=== PATIENT | male | born 1985 | race Caucasian/White ===

== ENCOUNTER 2020-03-02 20:46 | Emergency (ER) | payer OTHER ==
[~2020-03-02] VITALS: Ht 177.8 cm; Wt 63.5 kg
[2020-03-02 22:29] VITALS: BP 115/82
[2020-03-02 23:30] VITALS: BP 118/88
--- NOTE | 2020-03-02 23:39 | DIREP ---
PROCEDURE:CHEST 1 VIEW COMPARISON:None. INDICATIONS:Chest congestion FINDINGS: LUNGS/PLEURA:Prominence of the suprahilar and upper lobe interstitial markings. No consolidation or pleural effusion. VASCULATURE:Normal. Unremarkable pulmonary vasculature. CARDIAC:Normal. No cardiac silhouette abnormality or cardiomegaly. MEDIASTINUM:Normal. No visible mass or adenopathy. BONES:Normal. No fracture or visible bony lesion. OTHER:Negative. CONCLUSION:Prominence of the suprahilar and upper lobe interstitial markings. No consolidation or pleural effusion. Dictated by: Gustavo Chaves MD on 03/02/2020 at 11:36 PM
[2020-03-02] MEDS ORDERED: AMOXIL PO STA (23:54)
--- NOTE | 2020-03-02 23:58 | ER.PDOC ---
General Chief Complaint: Dyspnea/Respdistress Stated Complaint: CHEST CONGESTION Time seen by MD: 23:54 Source: patient Exam Limitations: no limitations History of Present Illness Initial Comments Cough, congestion and sore throat for 2 days. No fever or chills. Timing/Duration: gradual Severity: moderate Associated Symptoms: runny nose, sore throat, cough Allergies: Coded Allergies: No Known Allergies (Unverified , 03/02/20) Constitutional: no symptoms reported EENTM: see HPI Respiratory: see HPI Cardiovascular: no symptoms reported Gastrointestinal: no symptoms reported Genitourinary: no symptoms reported All Other Systems: Reviewed and Negative Past Medical History Medical History: no pertinent history Surgical History: no surgical history Family History Significant Family History: no pertinent family hx Social History Alcohol Use: occassionally Drug Use: cocaine, marijuana Physical Exam General Appearance: alert, no distress Nose: rhinorrhea Throat: pharyngeal erythema Neck: nml inspection, supple Respiratory: no resp.distress, breath sounds nml Abdomen: non-tender, no organomegaly CVS: reg rate & rhythm, heart sounds nml Skin: color nml, no rash, warm/dry Extremities: non-tender, nml ROM, no pedal edema NEURO/PSYCH: oriented x 3, CN's nml as tested, motor nml, sensation nml, mood/affect nml Results/Orders Results/Orders Orders - ISABELLE ARMIJO MD Strep Screen (03/02/20 22:26) Influenza A&B (03/02/20 22:26) Covid19 Antigen Irasema Marleny (03/02/20 22:26) Xr Chest 1v (03/02/20 22:58) Vital Signs Date Time Temp Pulse Resp B/P (MAP) Pulse Ox O2 Delivery O2 Flow Rate FiO2 03/02/20 23:30 98.8 90 16 118/88 (98) 94 Room Air 03/02/20 22:29 98.8 96 16 03/02/20 22:29 98.8 96 16 115/82 (93) 94 Room Air 03/02/20 22:29 98.8 96 16 94 Laboratory Tests Test 03/02/20 22:40 Influenza Type A Antigen NEGATIVE (NEG) Influenza B Immunofluorescence NEGATIVE (NEG) SARS-CoV-2 Antigen (Rapid) NEGATIVE (NEGATIVE) Group A Streptococcus Screen POSITIVE (NEGATIVE) Progress Progress CXR: Prominence of the suprahilar and upper lobe interstitial markings. No consolidation or pleural effusion. ER DEPART Departure Time of Disposition: 23:56 Disposition: 01 HOME, SELF-CARE Impression: Primary Impression: Strep pharyngitis Additional Impression: Viral upper respiratory infection Condition: Stable Referrals: PCP,UNKNOWN (PCP) PRIMARY CARE PROVIDER Additional Instructions: Amoxil Chloraseptic spray OTC as needed for throat pain F/U with your PCP in 1 week Return to ED if worsening or concerns Duration or Time Spent with Pa: 10 min Problem Qualifiers ZOFIA,ISABELLE Zepeda MD Mar 02, 2020 23:57
[2020-03-03] MEDS ORDERED: AMOXIL PO ONE (00:04)
== END 2020-03-03 00:05 | disposition home or self-care (01) ==
LOC: ER 20:46
DX: J02.0 Streptococcal pharyngitis (principal); Z20.822 Contact with and (suspected) exposure to COVID-19
CPT/HCPCS: 71045; 87426; 87804; 87880; 99284